=== PATIENT | female | born 1970 | race Caucasian/White ===

== ENCOUNTER 2017-05-23 07:38 | Inpatient (IN) | payer OTHER ==
[~2017-05-23] VITALS: Ht 170.1 cm; Wt 74.8 kg
[2017-05-23] VITALS (10 sets, daily range): BP systolic 142–180; BP diastolic 73–94
[~2017-05-23 07:38] MED LIST: CIPRO250 MG PO; COUMADIN6 M1 PO
[2017-05-23 08:20] LABS: BASO % 0.6 % (0.0-1.0); EOS # 0.1 10*3/uL (0.0-0.4); EOS % 1.3 % (1.0-4.0); HEMATOCRIT 41.4 % (37.0-47.0); HEMOGLOBIN 15.1 g/dl (12.0-16.0); LYMPH # 1.3 10*3/uL (1.3-4.4); LYMPH % 23.3 % (27.0-41.0); MEAN CELL VOLUME 82.5 fl (81.0-99.0); MEAN CORPUSCULAR HGB 30.1 pg (27.0-31.0); MEAN CORPUSCULAR HGB CONC 36.5 g/dl (33.0-37.0); MEAN PLATELET VOLUME 9.8 fl (9.6-12.3); MONO # 0.5 10*3/uL (0.1-1.0); MONO % 8.4 % (3.0-9.0); NEUT # 3.6 10*3/uL (2.3-7.9); NEUT % 66.2 % (47.0-73.0); PLATELET COUNT AUTOMATED 231 10*3/uL (130-400); RED BLOOD COUNT 5.02 10*6/uL (4.10-5.10); RED CELL DISTRI WIDTH 12.1 % (0-14.5); WHITE BLOOD COUNT 5.5 10*3/uL (4.8-10.8)
[2017-05-23 08:34] LABS: ACT PARTIAL THROMBO TIME 30.1 SECONDS (20.8-31.5); INTERNATIONAL NORM RATIO 2.1 (2.0-3.5)
[2017-05-23 08:43] LABS: ALKALINE PHOSPHATASE 72 U/L (45-117); BUN 16 mg/dl (7-24); CHLORIDE 106 mmol/L (98-107); CREATININE 0.87 mg/dL (0.55-1.02); POTASSIUM 3.9 mmol/L (3.5-5.1); SGOT/AST 21 IU/L (3-35); SGPT/ALT 24 U/L (12-78); SODIUM 139 mmol/L (136-145); TOTAL PROTEIN 7.6 gm/dL (6.4-8.2)
[2017-05-23 08:45] LABS: TROPONIN I 0.069 ng/ml (<0.045)
[2017-05-23] MEDS ORDERED: JANTOVEN6 M1 PO (10:10)
[2017-05-24] VITALS: BP 127/83
[2017-05-24 06:11] LABS: ALBUMIN 3.6 gm/dl (3.1-4.5); ALKALINE PHOSPHATASE 69 U/L (45-117); BUN 14 mg/dl (7-24); CHLORIDE 105 mmol/L (98-107); CHOLESTEROL 204 mg/dL (<200); CREATININE 0.73 mg/dL (0.55-1.02); HDL CHOLESTEROL 65 mg/dl (40-60); LDL CHOLESTEROL 122 mg/dL (9-159); PHOSPHOROUS 3.6 mg/dL (2.5-4.9); POTASSIUM 3.8 mmol/L (3.5-5.1); SGOT/AST 18 IU/L (3-35); SGPT/ALT 25 U/L (12-78); SODIUM 141 mmol/L (136-145); TOTAL PROTEIN 7.1 gm/dL (6.4-8.2); TRIGLYCERIDES 86 mg/dl (<150); VLDL CHOLESTEROL 17 mg/dL (6-40)
[2017-05-24 06:17] LABS: TROPONIN I 0.059 ng/ml (<0.045)
[2017-05-24 06:18] LABS: BASO % 0.6 % (0.0-1.0); EOS # 0.1 10*3/uL (0.0-0.4); EOS % 1.9 % (1.0-4.0); HEMATOCRIT 41.1 % (37.0-47.0); HEMOGLOBIN 14.7 g/dl (12.0-16.0); LYMPH # 1.4 10*3/uL (1.3-4.4); LYMPH % 29.8 % (27.0-41.0); MEAN CELL VOLUME 83.7 fl (81.0-99.0); MEAN CORPUSCULAR HGB 29.9 pg (27.0-31.0); MEAN CORPUSCULAR HGB CONC 35.8 g/dl (33.0-37.0); MONO # 0.4 10*3/uL (0.1-1.0); MONO % 9.3 % (3.0-9.0); NEUT # 2.8 10*3/uL (2.3-7.9); NEUT % 58.2 % (47.0-73.0); PLATELET COUNT AUTOMATED 225 10*3/uL (130-400); RED BLOOD COUNT 4.91 10*6/uL (4.10-5.10); RED CELL DISTRI WIDTH 12.4 % (0-14.5); WHITE BLOOD COUNT 4.7 10*3/uL (4.8-10.8)
[2017-05-24 06:40] LABS: ACT PARTIAL THROMBO TIME 31.1 SECONDS (20.8-31.5); INTERNATIONAL NORM RATIO 2.4 (2.0-3.5)
[2017-05-24 07:58] LABS: VITAMIN D, 25-HYDROXY 17.7 ng/mL (30-100)
[2017-05-24 08:00] VITALS: BP 154/82
== END 2017-05-24 09:50 | disposition home or self-care (01) | DRG 313 ==
LOC: ED 07:38 → 5E 10:02 → EDHOLD 10:02 → 5E 10:08
PROVIDERS: Emergency Medicine; Internal Medicine; Student in an Organized Health Care Education/Training Program
DX: R07.9 Chest pain, unspecified (principal); D68.59 Other primary thrombophilia; E83.41 Hypermagnesemia; R06.09 Other forms of dyspnea; R74.8 Abnormal levels of other serum enzymes; Z86.711 Personal history of pulmonary embolism; Z86.718 Personal history of other venous thrombosis and embolism

== ENCOUNTER → 2017-10-27 | Outpatient (CLI) | payer OTHER ==
[~2017-10-27] MED LIST changes: +JANTOVEN6 M1 PO
[2017-10-27 10:40] LABS: BASO % 0.7 % (0.0-1.0); EOS # 0.1 10*3/uL (0.0-0.4); EOS % 1.4 % (1.0-4.0); HEMATOCRIT 40.3 % (37.0-47.0); HEMOGLOBIN 14.2 g/dl (12.0-16.0); LYMPH # 1.3 10*3/uL (1.3-4.4); LYMPH % 22.6 % (27.0-41.0); MEAN CELL VOLUME 83.8 fl (81.0-99.0); MEAN CORPUSCULAR HGB 29.5 pg (27.0-31.0); MEAN CORPUSCULAR HGB CONC 35.2 g/dl (33.0-37.0); MEAN PLATELET VOLUME 10.3 fl (9.6-12.3); MONO # 0.4 10*3/uL (0.1-1.0); MONO % 6.4 % (3.0-9.0); NEUT # 3.9 10*3/uL (2.3-7.9); NEUT % 68.5 % (47.0-73.0); PLATELET COUNT AUTOMATED 233 10*3/uL (130-400); RED BLOOD COUNT 4.81 10*6/uL (4.10-5.10); RED CELL DISTRI WIDTH 12.2 % (0-14.5); WHITE BLOOD COUNT 5.6 10*3/uL (4.8-10.8)
[2017-10-27 10:47] LABS: ALBUMIN 3.8 gm/dl (3.1-4.5); BUN 12 mg/dl (7-24); CHLORIDE 104 mmol/L (98-107); CHOLESTEROL 203 mg/dL (<200); CREATININE 0.78 mg/dL (0.55-1.02); POTASSIUM 4.1 mmol/L (3.5-5.1); SGOT/AST 18 IU/L (3-35); SGPT/ALT 23 U/L (12-78); SODIUM 139 mmol/L (136-145); TRIGLYCERIDES 140 mg/dl (<150); VLDL CHOLESTEROL 28 mg/dL (6-40)
[2017-10-27 10:57] LABS: ALKALINE PHOSPHATASE 78 U/L (45-117); HDL CHOLESTEROL 55 mg/dl (40-60); LDL CHOLESTEROL 120 mg/dL (9-159); TOTAL PROTEIN 7.3 gm/dL (6.4-8.2)
== END | disposition home or self-care (01) ==
LOC: LAB 09:55
PROVIDERS: Internal Medicine
DX: E66.09 Other obesity due to excess calories (principal)

== ENCOUNTER → 2019-02-08 | Outpatient (CLI) | payer OTHER | END | disposition home or self-care (01) | LOC: CT 15:37 | DX: R10.2 Pelvic and perineal pain (principal); R93.89 Abnormal findings on diagnostic imaging of other specified body structures ==

== ENCOUNTER 2019-06-09 21:25 | Emergency (ER) | payer OTHER ==
[~2019-06-09] VITALS: Wt 88.5 kg
[2019-06-09] MEDS ORDERED: LISINOPRIL20 MG PO (21:49)
[2019-06-09 21:54] VITALS: BP 148/65
[2019-06-09 22:14] LABS: BASO # 0.1 10*3/uL (0.0-0.1); BASO % 0.6 % (0.0-1.0); EOS # 0.1 10*3/uL (0.0-0.4); EOS % 0.7 % (1.0-4.0); HEMATOCRIT 39.2 % (37.0-47.0); HEMOGLOBIN 13.7 g/dl (12.0-16.0); LYMPH # 1.6 10*3/uL (1.3-4.4); LYMPH % 19.4 % (27.0-41.0); MEAN CELL VOLUME 84.8 fl (81.0-99.0); MEAN CORPUSCULAR HGB 29.7 pg (27.0-31.0); MEAN CORPUSCULAR HGB CONC 34.9 g/dl (33.0-37.0); MEAN PLATELET VOLUME 10.5 fl (9.6-12.3); MONO # 0.6 10*3/uL (0.1-1.0); MONO % 6.7 % (3.0-9.0); NEUT # 5.9 10*3/uL (2.3-7.9); NEUT % 72.2 % (47.0-73.0); PLATELET COUNT AUTOMATED 233 10*3/uL (130-400); RED BLOOD COUNT 4.62 10*6/uL (4.10-5.10); RED CELL DISTRI WIDTH 12.4 % (0-14.5); WHITE BLOOD COUNT 8.2 10*3/uL (4.8-10.8)
[2019-06-09 22:25] LABS: BUN 20 mg/dl (7-24); CHLORIDE 110 mmol/L (98-107); CREATININE 1.02 mg/dL (0.55-1.02); POTASSIUM 3.6 mmol/L (3.5-5.1); SODIUM 141 mmol/L (136-145)
[2019-06-09 22:26] LABS: ACT PARTIAL THROMBO TIME 29.7 SECONDS (20.0-32.1); INTERNATIONAL NORM RATIO 1.7 (2.0-3.5)
[2019-06-09 23:12] LABS: BILIRUBIN NEGATIVE (NEGATIVE); BLOOD 3+ (NEGATIVE); CLARITY SL CLOUDY (CLEAR); COLOR YELLOW (YELLOW); GLUCOSE NEGATIVE (NEGATIVE); KETONE NEGATIVE (NEGATIVE); NITRITE NEGATIVE (NEGATIVE); UROBILINOGEN 0.2 E.U./dl (0.2-1.0)
[2019-06-09 23:13] LABS: LEUKO ESTERASE NEGATIVE (NEGATIVE)
[2019-06-09 23:23] LABS: EPITHELIAL CELLS 20-25
[2019-06-09 23:24] LABS: BACTERIA TRACE; RBC TNTC rbc/hpf (0-2)
[2019-06-10] MEDS ORDERED: ZOFRAN4 MG PO (00:31)
[2019-06-10] MEDS ORDERED: TRAMADOL HCL50 MG PO (00:31)
== END 2019-06-10 00:50 | disposition home or self-care (01) ==
LOC: ED 21:25
PROVIDERS: Emergency Medicine
DX: N23 Unspecified renal colic (principal); N20.1 Calculus of ureter; Z79.899 Other long term (current) drug therapy; Z79.01 Long term (current) use of anticoagulants

== ENCOUNTER → 2022-12-03 | Outpatient (CLI) | payer OTHER ==
[~2022-12-03] MED LIST changes: +LISINOPRIL20 MG PO; +TRAMADOL HCL50 MG PO; +ZOFRAN4 MG PO
== END | disposition home or self-care (01) ==
LOC: US 15:26
PROVIDERS: ATTEND Physician Assistant Medical
DX: R31.29 Other microscopic hematuria (principal)

== ENCOUNTER 2023-05-15 10:10 | Emergency (ER) | payer OTHER ==
[~2023-05-15] VITALS: Ht 165.1 cm; Wt 90.7 kg
[2023-05-15 10:19] VITALS: BP 163/81
== END 2023-05-15 12:54 | disposition home or self-care (01) ==
LOC: ED 10:10
DX: M79.89 Other specified soft tissue disorders (principal); Z98.890 Other specified postprocedural states; Z86.718 Personal history of other venous thrombosis and embolism

== ENCOUNTER 2023-07-29 04:24 | Inpatient (IN) | payer OTHER ==
[~2023-07-29] VITALS: Ht 167.6 cm; Wt 95.3 kg
[2023-07-29 04:37] VITALS: BP 157/80
[2023-07-29 05:18] LABS: ALKALINE PHOSPHATASE 81 U/L (46-116); BUN 18 mg/dl (9-23); CHLORIDE 104 mmol/L (98-107); POTASSIUM 3.8 mmol/L (3.4-5.1); SGPT/ALT 32 U/L (5-49); TOTAL PROTEIN 6.8 gm/dL (6.0-8.0)
[2023-07-29] MEDS ORDERED: LOSARTAN POTAS100 M1 PO (06:04)
[2023-07-29] MEDS ORDERED: HYDROCHLOROTH12.5 M3 PO (06:04)
[2023-07-29 06:19] LABS: BASO % 0.8 % (0.0-1.0); EOS # 0.1 10*3/uL (0.0-0.4); EOS % 2.9 % (1.0-4.0); HEMATOCRIT 41.1 % (37.0-47.0); LYMPH # 1.7 10*3/uL (1.3-4.4); LYMPH % 33.8 % (27.0-41.0); MEAN CELL VOLUME 83.5 fl (81.0-99.0); MEAN CORPUSCULAR HGB 29.9 pg (27.0-31.0); MEAN CORPUSCULAR HGB CONC 35.8 g/dl (33.0-37.0); MEAN PLATELET VOLUME 10.8 fl (9.6-12.3); MONO # 0.4 10*3/uL (0.1-1.0); MONO % 7.8 % (3.0-9.0); NEUT # 2.7 10*3/uL (2.3-7.9); NEUT % 54.5 % (47.0-73.0); PLATELET COUNT AUTOMATED 232 10*3/uL (130-400); RED BLOOD COUNT 4.92 10*6/uL (4.10-5.10); RED CELL DISTRI WIDTH 12.4 % (0-14.5); WHITE BLOOD COUNT 4.9 10*3/uL (4.8-10.8)
[2023-07-29] MEDS ORDERED: ACETAMINOPHEN 325 MG TAB PO PRN (07:55)
[2023-07-29] MEDS ORDERED: BISACODYL 10 MG SUPP R PRN (07:55)
[2023-07-29] MEDS ORDERED: Magnesium Hydroxide 30 ML UDC PO PRN (07:55)
[2023-07-29] MEDS ORDERED: BISACODYL 5 MG TAB PO PRN (07:55)
[2023-07-29 07:57] VITALS: BP 187/80
[2023-07-29] MEDS ORDERED: ASPIRIN, CHEWABLE 81 MG TAB PO ONE (08:00)
[2023-07-29] MEDS ORDERED: Technetium Tc 99M Tetrofosmi 0.23 MG KIT IJ SCH (08:20)
[2023-07-29] MEDS ORDERED: Regadenoson 0.4 MG/5 ML SYR IV ONE (08:35)
[2023-07-29 12:17] VITALS: BP 136/63
== END 2023-07-29 15:55 | disposition home or self-care (01) | DRG 281 ==
LOC: ED 04:24 → EDHOLD 07:23
PROVIDERS: Emergency Medicine; ADMIT Internal Medicine; ATTEND Internal Medicine
PROC: 4A12XM4 Monitoring of Cardiac Stress, External Approach (ICD-10-PCS; principal; 2023-07-29)
PROC: 3E073KZ Introduction of Other Diagnostic Substance into Coronary Artery, Percutaneous Approach (ICD-10-PCS; 2023-07-29)
DX: I21.9 Acute myocardial infarction, unspecified (principal); D68.59 Other primary thrombophilia; M79.602 Pain in left arm; I10 Essential (primary) hypertension; R73.9 Hyperglycemia, unspecified; E66.9 Obesity, unspecified; Z79.899 Other long term (current) drug therapy; Z79.01 Long term (current) use of anticoagulants; Z79.2 Long term (current) use of antibiotics; Z86.718 Personal history of other venous thrombosis and embolism; Z68.30 Body mass index [BMI] 30.0-30.9, adult; Z86.711 Personal history of pulmonary embolism; Z82.3 Family history of stroke; Z82.49 Family history of ischemic heart disease and other diseases of the circulatory system